=== PATIENT | female | born 1970 | race Two or more races ===

== ENCOUNTER 2018-05-19 08:16 | Outpatient (CLI) | payer OTHER ==
[~2018-05-19 08:16] MED LIST: OSEL75CA PO; TUSSI PRES-B L120 M1 PO
== END 2018-05-19 08:25 | disposition home or self-care (01) ==
LOC: RX STUDY 08:16
DX: K50.00 Crohn's disease of small intestine without complications (principal)

== ENCOUNTER 2018-05-29 07:51 | Outpatient (CLI) | payer OTHER | END 2018-05-29 15:00 | disposition home or self-care (01) | LOC: LAB 07:51 | DX: R10.31 Right lower quadrant pain (principal); Z51.81 Encounter for therapeutic drug level monitoring ==

== ENCOUNTER 2018-06-02 07:06 | Outpatient (CLI) | payer OTHER | END 2018-06-02 07:18 | disposition home or self-care (01) | LOC: TOM 07:06 | DX: R10.31 Right lower quadrant pain (principal); R10.32 Left lower quadrant pain ==